=== PATIENT | male | born 1970 | race Asian ===

== ENCOUNTER 2017-08-08 15:37 | Emergency (ER) | payer OTHER ==
[2017-08-08 16:04] VITALS: BP 138/95
== END 2017-08-08 19:07 | disposition home or self-care (01) ==
LOC: ED 15:37
DX: J06.9 Acute upper respiratory infection, unspecified (principal)

== ENCOUNTER 2019-04-06 12:48 | Emergency (ER) | payer OTHER ==
[~2019-04-06] VITALS: Ht 172.7 cm; Wt 96.2 kg
[2019-04-06 12:56] VITALS: BP 128/73; Ht 172.7 cm; Wt 96.2 kg
== END 2019-04-06 15:15 | disposition home or self-care (01) ==
LOC: ED 12:48
DX: S63.501A Unspecified sprain of right wrist, initial encounter (principal); X50.1XXA Overexertion from prolonged static or awkward postures, initial encounter; Y93.89 Activity, other specified; Y92.89 Other specified places as the place of occurrence of the external cause; Y99.8 Other external cause status
CPT/HCPCS: J1885

== ENCOUNTER 2019-10-01 17:16 | Emergency (ER) | payer OTHER ==
[~2019-10-01] VITALS: Ht 172.7 cm; Wt 97.1 kg
[2019-10-01 17:33] VITALS: Ht 172.7 cm; Wt 97.1 kg
[2019-10-01 19:08] VITALS: BP 150/96
== END 2019-10-01 19:08 | disposition home or self-care (01) ==
LOC: ED 17:16
DX: G60.8 Other hereditary and idiopathic neuropathies (principal); I10 Essential (primary) hypertension